=== PATIENT | male | born 1985 | race Caucasian/White ===

== ENCOUNTER 2020-03-31 09:59 | Emergency (ER) | payer OTHER ==
[~2020-03-31] VITALS: Ht 185.4 cm; Wt 90.0 kg
--- NOTE | 2020-03-31 10:10 | NUR ---
PT BIBA. PER EMS PT WAS WORKING OUT AT HOME WHEN HE STARTED TO FEEL LIGHT HEADED AND FELT PALPATATIONS. PT DENIES ANY CARDIAC HISTORY FOR HIMSELF. PER EMS HE GOT 2MG OF VERSED. PER PT NO CP OR N/V. PT RESTING IN [facility] WITH CONTINUOUS PULSE OX AND CARDIAC MONITORING IN PLACE. WILL CONTINUE TO MONITOR.
[2020-03-31] MEDS ORDERED: SODIUM CHLORIDE FLUSH 10ML SYR IVF ONE (10:30)
[2020-03-31 10:37] LABS: BASOPHILS % (AUTO) 0 % (0-1); EOSINOPHILS % (AUTO) 1 % (1-7); LYMPHOCYTES % (AUTO) 11 % (22-44); MEAN CORPUSCULAR HEMOGLOBIN 29.9 pg (27.5-34.5); MEAN CORPUSCULAR HGB CONC 34.1 g/dL (33.2-36.2); MEAN PLATELET VOLUME 7.1 fL (7.4-10.4); MONOCYTES % (AUTO) 8 % (2-9); NEUTROPHILS % (AUTO) 80 % (42-75); PLATELET COUNT 298 x10^3/uL (130-400); RED CELL DISTRIBUTION WIDTH 13.3 % (9.4-14.8)
[2020-03-31 10:38] LABS: MD NO
[2020-03-31 12:00] LABS: ALBUMIN 3.8 g/dL (3.4-5.0); ANION GAP 8 mmol/L (5-15); CALCIUM 9.2 mg/dL (8.5-10.1); CHLORIDE 110 mmol/L (98-107)
[2020-03-31 12:03] LABS: CREATININE 1.19 mg/dL (0.7-1.3)
[2020-03-31 12:19] VITALS: BP 132/81
--- NOTE | 2020-03-31 12:26 | NUR ---
Patient given discharge instructions and [employer] referral and they have confirmed that they understand the instructions. IV removed with tip intact. Patient ambulatory with steady gait from ED to private vehicle.
== END 2020-03-31 12:27 | disposition home or self-care (01) ==
LOC: ED 11:21
DX: R00.2 Palpitations (principal); R42 Dizziness and giddiness; R55 Syncope and collapse; E78.00 Pure hypercholesterolemia, unspecified
CPT/HCPCS: 36415; 71045; 80048; 82040; 84443; 85025; 93005; 99285